=== PATIENT | female | born 1955 | race Caucasian/White ===

== ENCOUNTER 2017-12-04 22:25 | Inpatient (IN) | payer OTHER, MEDICARE ==
[2017-12-04] MEDS: SODIUM CHLORIDE 0.9% FLUSH 10 ML FLUSH IV FLUSH SCH (21:00)
[~2017-12-04 22:25] MED LIST: ASPI-516 CHEW; CARV12.5 PO; CETI10CA3; COZA50TA PO; DIGO0.25 PO; FURO1TAB60 PO; NALOXONE HCL 0.4 MG/ML AMP IV PUSH PRN; ONDANSETRON HCL 4 MG/2 ML VIAL IVP PRN; SODIUM CHLORIDE 0.9% FLUSH 10 ML FLUSH IV FLUSH PRN; SODIUM CHLORIDE 0.9% FLUSH 10 ML FLUSH IV FLUSH SCH
[2017-12-04] MEDS ORDERED: SPIR25TA PO (23:44)
[2017-12-04] MEDS ORDERED: CARV6.252 PO (23:46)
[2017-12-04] MEDS ORDERED: LOSA25TA PO (23:48)
[2017-12-05 00:26] VITALS: PULSE 77
[2017-12-05 00:59] VITALS: BP 116/53; PULSE 96; RESP 14; TEMP 98.2; O2SAT 95
[2017-12-05 01:02] LABS: TROPONIN I 0.13 NG/ML (0.02-0.05)
--- NOTE | 2017-12-05 04:50 | HHI.HP ---
HPI Service [facility] Primary Care Physician Suman Gutiérrez MD Admission Diagnosis Elevated troponin I Dizziness Weakness Diagnoses: (1) Elevated troponin I level (2) Weakness (3) Dizziness Chief Complaint: severe dizziness with nausea and vomiting Travel History International Travel<30 Days: No Contact w/Intl Traveler <30 Da: No Traveled to Known Affected Are: No History of Present Illness Ms. Cross is a 62 year-old female with a history of hypothyroidism, muscular dystrophy, CHF, ?CAD?, Asthma, and hypertension who presented to the ED for evaluation of dizziness with nausea and vomiting and was found to have Troponin I elevation and was transferred to [facility] [place]ology [place]. There was some question of junctional rhythm but I did not see this on the EKGs and, when reviewed by my supervising physician, we felt there was no junctional dysrhythmia. The patient is seen in her hospital room. She reports that she came to the ER for evaluation of severe dizziness and nausea with vomiting (emesis x 2 episodes ) with symptom onset 12/04/17 at about 10 - 11 a.m. She denies any chest pain but reports lightheadedness with vertigo. She denies any shortness of breath. She is also concerned about worsening weakness over the past several weeks with concern of progressively worsening muscular dystrophy. She denies any recent fever, chills, diarrhea, chest pain, shortness of breath, dysuria, or hematuria. She reports coughing the night before last but this was a self- limited episode. Her journalism intern is Dr. Winkler in [facility]. Her last echocardiogram and stress test were done 08/2017 and she was told to follow up in one year. She states her EF is 30%, "I think". Review of Systems Except as stated in HPI: all other systems reviewed are Neg Past Family Social History Past Medical History Hypothyroidism - doesn't recall dose of Synthroid Muscular Dystrophy - doesn't follow with any specialists for this CHF - follows with Dr. Winkler - the patient reports an EF of 30% Questionable CAD with angioplasty vs stent placement about 15 years ago - follows with Dr. Winkler - last echo/stress test done in August 2017 Hypertension Asthma with 7 years since last exacerbation Denies DM, irregular heart rhythm, emphysema, liver problems, kidney problems, seizures, DVT, PE, CVA, or cancers. . Past Surgical History Cholecystectomy Cardiac catheterization . Reported Medications Reported Meds & Active Scripts Active Reported Losartan (Losartan Potassium) 25 Mg Tab 25 Mg PO DAILY Carvedilol 6.25 Mg Tab 6.25 Mg PO BID Spironolactone 25 Mg Tab 25 Mg PO DAILY Zyrtec (Cetirizine HCl) 10 Mg Capsule Aspirin 81 Mg Chew 81 Mg CHEW DAILY Digoxin 0.25 Mg Tab 0.25 Mg PO DAILY Lasix (Furosemide) 40 Mg Tab 40 Mg PO DAILY Synthroid - dosage unknown Allergies: Coded Allergies: codeine (Verified Allergy, Severe, Nausea/Vomiting, 12/04/17) Family History Mother with LA age 42, from dementia age 82 Father with ALS, age 68 3 brothers with MD . Social History Tobacco: denies ever smoking Alcohol: denies Illicit Drugs: denies . Physical Exam Vital Signs Vital Signs Date Time Temp Pulse Resp B/P (MAP) Pulse Ox O2 Delivery O2 Flow Rate FiO2 12/05/17 00:59 98.2 96 14 116/53 (74) 95 12/05/17 00:26 77 Physical Exam CONSTITUTIONAL: This is an overweight female patient, in no apparent distress. INTEGUMENTARY: No rashes. Cool and dry. HEENT: Atraumatic. Normocephalic. No scleral icterus. No injection or drainage. Nose without bleeding, purulent drainage. NECK: Trachea midline. No JVD. CARDIOVASCULAR: Regular rate and rhythm without murmurs, gallops, or rubs. No peripheral edema noted. RESPIRATORY: Clear to auscultation. Breath sounds equal bilaterally. No wheezes , rales, or rhonchi. GASTROINTESTINAL: Abdomen soft, non-tender, nondistended. No guarding. MUSCULOSKELETAL: Extremities without clubbing, cyanosis, or edema. No calf tenderness. NEUROLOGICAL: Awake and alert. Motor and sensory grossly within normal limits. Normal speech. No focal deficits. . Laboratory Laboratory Tests Test 12/04/17 14:40 White Blood Count 12.1 TH/MM3 Red Blood Count 4.60 MIL/MM3 Hemoglobin 13.8 GM/DL Hematocrit 42.2 % Mean Corpuscular Volume 91.7 FL Mean Corpuscular Hemoglobin 30.0 PG Mean Corpuscular Hemoglobin Concent 32.7 % Red Cell Distribution Width 13.2 % Platelet Count 247 TH/MM3 Mean Platelet Volume 9.5 FL Immature Granulocyte % (Auto) 0.3 % Neutrophils (%) (Auto) 81.1 % Lymphocytes (%) (Auto) 12.4 % Monocytes (%) (Auto) 4.6 % Eosinophils (%) (Auto) 1.1 % Basophils (%) (Auto) 0.5 % Immature Granulocyte # (Auto) 0.0 TH/MM3 Neutrophils # (Auto) 9.8 TH/MM3 Lymphocytes # (Auto) 1.5 TH/MM3 Monocytes # (Auto) 0.6 TH/MM3 Eosinophils # (Auto) 0.1 TH/MM3 Basophils # (Auto) 0.1 TH/MM3 CBC Comment DIFF FINAL Differential Comment Urine Color YELLOW Urine Turbidity CLOUDY Urine pH 7.0 Urine Specific [place] 1.015 Urine Protein NEG mg/dL Urine Glucose (UA) NEG mg/dL Urine Ketones NEG mg/dL Urine Occult Blood NEG Urine Nitrite NEG Urine Bilirubin NEG Urine Urobilinogen 0.2 MG/DL Urine Leukocyte Esterase NEG Urine RBC 0-3 /hpf Urine Squamous Epithelial Cells > 8 /hpf Urine Amorphous Sediment MOD Urine Bacteria FEW /hpf Microscopic Urinalysis Comment CULT NOT INDICATED Blood Urea Nitrogen 16 MG/DL Creatinine 0.30 MG/DL Random Glucose 115 MG/DL Total Protein 8.2 GM/DL Albumin 3.4 GM/DL Calcium Level 9.0 MG/DL Magnesium Level 2.0 MG/DL Alkaline Phosphatase 82 U/L Aspartate Amino Transf (AST/SGOT) 38 U/L Alanine Aminotransferase (ALT/SGPT) 32 U/L Total Bilirubin 0.2 MG/DL Sodium Level 139 MEQ/L Potassium Level 3.8 MEQ/L Chloride Level 101 MEQ/L Carbon Dioxide Level 33.0 MEQ/L Anion Gap 5 MEQ/L Estimat Glomerular Filtration Rate 225 ML/MIN Total Creatine Kinase 442 U/L Creatine Kinase MB 10.9 NG/ML Creatine Kinase MB % 2.5 % Troponin I 0.08 NG/ML Digoxin Level 1.0 NG/ML Laboratory Tests Test 12/05/17 00:18 Total Creatine Kinase 682 Creatine Kinase MB 12.8 Creatine Kinase MB % 1.9 Troponin I 0.13 Imaging Last Impressions Chest X-Ray 12/04/17 0000 Signed Impressions: Service Date/Time: Monday, December 04, 2017 18:43 - CONCLUSION: 1. No acute cardiopulmonary disease. Nehemias Schwartz MD . Caprini VTE Risk Assessment Caprini VTE Risk Assessment: Mod/High Risk (score >= 2) Caprini Risk Assessment Model Point Value = 1 Point Value = 2 Point Value = 3 Point Value = 5 Age 41-60 Minor surgery BMI > 25 kg/m2 Swollen legs Varicose veins or History of unexplained or recurrent spontaneous Oral contraceptives or hormone replacement Sepsis (< 1 month) Serious lung disease, including pneumonia (< 1 month) Abnormal pulmonary function Acute myocardial infarction Congestive heart failure (< 1 month) History of inflammatory bowel disease Medical patient at bed rest Age 61-74 Arthroscopic surgery Major open surgery (> 45 min) Laparoscopic surgery (> 45 min) Malignancy Confined to bed (> 72 hours) Immobilizing plaster cast Central venous access Age >= 75 History of VTE Family history of VTE Factor V Leiden Prothrombin [id number] Lupus anticoagulant Anticardiolipin antibodies Elevated serum homocysteine Heparin-induced thrombocytopenia Other congenital or acquired thrombophilia Stroke (< 1 month) Elective arthroplasty Hip, pelvis, or leg fracture Acute spinal cord injury (< 1 month) Prophylaxis Regimen Total Risk Factor Score Risk Level Prophylaxis Regimen 0-1 Low Early ambulation 2 Moderate Order ONE of the following: *Sequential Compression Device (SCD) *Heparin 5000 units SQ BID 3-4 Higher Order ONE of the following medications: *Heparin 5000 units SQ TID *Enoxaparin/Lovenox 40 mg SQ daily (WT < 150 kg, CrCl > 30 mL/min) *Enoxaparin/Lovenox 30 mg SQ daily (WT < 150 kg, CrCl > 10-29 mL/min) *Enoxaparin/Lovenox 30 mg SQ BID (WT < 150 kg, CrCl > 30 mL/min) AND/OR *Sequential Compression Device (SCD) 5 or more Highest Order ONE of the following medications: *Heparin 5000 units SQ TID (Preferred with Epidurals) *Enoxaparin/Lovenox 40 mg SQ daily (WT < 150 kg, CrCl > 30 mL/min) *Enoxaparin/Lovenox 30 mg SQ daily (WT < 150 kg, CrCl > 10-29 mL/min) *Enoxaparin/Lovenox 30 mg SQ BID (WT < 150 kg, CrCl > 30 mL/min) AND *Sequential Compression Device (SCD) Assessment and Plan Problem List: (1) Elevated troponin I level ICD Code: R74.8 - Abnormal levels of other serum enzymes (2) Weakness ICD Code: R53.1 - Weakness (3) Dizziness ICD Code: R42 - Dizziness and giddiness (4) Nausea & vomiting ICD Code: R11.2 - Nausea with vomiting, unspecified (5) Hypothyroidism ICD Code: E03.9 - Hypothyroidism, unspecified Status: Chronic Assessment and Plan Ms. Cross is a 62 year-old female with a history of hypothyroidism, muscular dystrophy, CHF, ?CAD?, Asthma, and hypertension who presented to the ED for evaluation of dizziness with nausea and vomiting and was found to have Troponin I elevation and was transferred to [facility] for cardiology evaluation. There was some question of junctional rhythm but I did not see this on the EKGs and, when reviewed by my supervising physician, we felt there was no junctional dysrhythmia. Elevated Troponin I History of CHF Possible history of CAD with stent vs angioplasty 15 years ago - The patient believes that her EF was reported at 30% - Serial cardiac enzymes with Troponin I 0.08, then 0.10, then 0.13 - CKMB % nl though CKMB elevated - EKGs personally reviewed and showed SR with LBBB - Cardiology consulted - patient denies chest pain - cardiac telemetry to monitor for arrhythmia - diet NPO - Monitor I and O - Obtain records from Dr. Winkler in [place] - last echo and stress test was 08/2017 - she believes they were unchanged from priors Hypothyroidism - check TSH - patient unsure of Synthroid dosage, nursing to call patient's pharmacy when they open Weakness and Dizziness - ?progression of MD? - consult PT - orthostatic vital signs - Neurochecks q4h - discussed with patient the need to f/u as an outpatient after cardiac clearance - will need a neuromuscular specialist Nausea/Vomiting - Zofran 4 mg IV q6h PRN N/V DVT prophylaxis - SCDs/TEDs Discussed Condition With Dr. Mehta and patient . Harper Brand Dec 05, 2017 04:50
[2017-12-05 05:05] VITALS: BP 103/50; PULSE 86; RESP 16; TEMP 98.6; O2SAT 98
[2017-12-05 08:06] VITALS: BP 97/46; PULSE 82; RESP 18; TEMP 97.9; O2SAT 96
[2017-12-05] MEDS: SODIUM CHLORIDE 0.9% FLUSH 10 ML FLUSH IV FLUSH SCH (08:24)
[2017-12-05] MEDS ORDERED: SPIRONOLACTONE 25 MG TAB PO SCH (09:00)
[2017-12-05] MEDS ORDERED: CARVEDILOL 6.25 MG TAB PO SCH (09:00)
[2017-12-05] MEDS ORDERED: LOSARTAN 25 MG TAB PO SCH (09:00)
[2017-12-05] MEDS ORDERED: FUROSEMIDE 40 MG TAB PO SCH (09:00)
[2017-12-05 11:43] VITALS: BP_SYST 103; BP_SYST 104; BP_SYST 96; BP_DIAS 50; BP_DIAS 52; BP_DIAS 56; PULSE 66; RESP 19; TEMP 98; O2SAT 95
[2017-12-05 14:16] LABS: AUTOMATED NEUTROPHIL # 5.6 TH/MM3 (1.8-7.7); BASOPHIL # 0.1 TH/MM3 (0-0.2); BASOPHIL % 0.8 % (0.0-2.0); EOSINOPHIL # 0.1 TH/MM3 (0-0.4); EOSINOPHIL % 1.1 % (0.0-4.0); HEMATOCRIT 37.9 % (35.0-46.0); HEMOGLOBIN 12.9 GM/DL (11.6-15.3); LYMPH % 25.8 % (9.0-44.0); LYMPHOCYTE # 2.2 TH/MM3 (1.0-4.8); MEAN CELL VOLUME 89.7 FL (80.0-100.0); MEAN CORPUSCULAR HEMOGLOBIN 30.4 PG (27.0-34.0); MEAN CORPUSCULAR HGB CONC 33.9 % (32.0-36.0); MEAN PLATELET VOLUME 7.5 FL (7.0-11.0); MONO % 6.4 % (0.0-8.0); MONOCYTE # 0.5 TH/MM3 (0-0.9); NEUT % 65.9 % (16.0-70.0); PLATELET COUNT 245 TH/MM3 (150-450); RED BLOOD COUNT 4.23 MIL/MM3 (4.00-5.30); RED CELL DISTRIBUTION WIDTH 13.4 % (11.6-17.2); WHITE BLOOD COUNT 8.5 TH/MM3 (4.0-11.0)
--- NOTE | 2017-12-05 14:26 | MB ---
cc: SANDIE RUIZ M.D. DATE OF CONSULTATION: 12/05/2017 REASON FOR CONSULTATION Junctional rhythm. HISTORY OF PRESENT ILLNESS The patient is a 62-year-old white female, a poor historian, apparently with a history of chronic recurrent congestive heart failure dating back 16 years, hypertension, muscular dystrophy, asthma, hypothyroidism, questionable history of coronary artery disease with cardiac catheterization 15 years ago, who was transferred from the hospital facility in [place] due to "junctional rhythm". Yesterday the patient developed vertigo symptoms, much worse when lying down. When she tried to eat something or drink some bette sunita she had two episodes of nausea, vomiting. The symptoms of vertigo, nausea have completely resolved today. She denies chest pains, shortness of breath, paroxysmal nocturnal dyspnea, palpitations, pedal edema, syncope, near-syncope. PAST MEDICAL HISTORY 1. History of recurrent congestive heart failure dating back 16 years. According to the patient she has been diagnosed with a cardiomyopathy in the past. 2. Hypertension. 3. Muscular dystrophy. 4. Asthma. 5. Hypothyroidism. 6. Possible history of coronary artery disease. She reports a cardiac catheterization 15 years ago but cannot recall whether she had percutaneous coronary intervention. PAST SURGICAL HISTORY Cholecystectomy. MEDICATIONS Cardiac medications at home: 1. Furosemide 40 mg daily. 2. Digoxin 0.25 mg daily. 3. Carvedilol 12.5 mg b.i.d. 4. Cozaar 50 mg b.i.d. 5. Aspirin 81 mg daily. ALLERGIES CODEINE. FAMILY HISTORY The patient's mother sustained an initial myocardial infarction in her 40s. SOCIAL HISTORY The patient denies alcohol, tobacco or drug abuse. REVIEW OF SYSTEMS Review of systems as in the history of present illness, otherwise negative or noncontributory. She also denies headache, ear pain, abdominal pain, melena, bright red blood per rectum, fevers. PHYSICAL EXAMINATION VITAL SIGNS: Her blood pressure is 103/52 with a pulse of 66, respirations 19. GENERAL: She is a well-developed, well-nourished white female in no acute distress. HEENT: Jugular venous pressure is normal. Carotid pulses are 2+ bilaterally and without bruits. CHEST: Examination of the chest reveals clear lung rivas. CARDIAC: On cardiac examination she has a regular rhythm and rate without S3-S4 or murmur. ABDOMEN: On abdominal examination she has a soft, nontender abdomen. Bowel sounds are present. There is no definite hepatosplenomegaly. Examination of the extremities reveals no clubbing, cyanosis or edema. EKG From 12/04/17 at 02:45 p.m. shows sinus rhythm, left bundle-branch block. EKG from 12/04 at 08:27 p.m. shows sinus arrhythmia, left bundle-branch block. IMAGING STUDIES Chest x-ray shows no acute disease. LABORATORY DATA Laboratory data includes WBC 12.1, hemoglobin 13.8, platelets 247, potassium 3.8, BUN 16, creatinine 0.30, troponin 0.13, CK 682 with 1.9% MB fraction. IMPRESSION 62-year-old white female with a history of congestive heart failure, hypertension, muscular dystrophy, questionable history of coronary artery disease, transferred from [facility] for "junctional rhythm". Her monitoring strips and EKGs have been reviewed. There is no evidence for junctional rhythm. P-wave activity is discernible on the EKG read as junctional rhythm. There is no evidence for acute congestive heart failure. The etiology of the slightly elevated troponin levels is not entirely clear. Overall I doubt acute coronary syndrome. She has had no angina symptoms. She reports a normal nuclear stress test about 3 months ago. Lastly, her symptoms yesterday were more consistent with vertigo rather than lightheadedness or near-syncope. These symptoms have for the most part resolved today. RECOMMENDATIONS 1. No additional cardiac workup at this time. I have recommended she see her primary portable machine sander sooner than already scheduled. 2. Continue her comprehensive cardiac medical regimen. 3. She is cleared for discharge from a cardiac standpoint. MD IDALIA Baker/NAVEEN /1:24 PM /2:04 PM AV
[2017-12-05 14:44] LABS: BICARBONATE 34.4 MEQ/L (21.0-32.0); CALCIUM 8.6 MG/DL (8.5-10.1); CREATININE 0.24 MG/DL (0.50-1.00)
[2017-12-05 14:47] LABS: TROPONIN I 0.13 NG/ML (0.02-0.05)
[2017-12-05 15:25] VITALS: BP 108/78; PULSE 76; RESP 18; TEMP 97.9; O2SAT 96
[2017-12-05] MEDS ORDERED: ACETAMINOPHEN 500 MG CPLT PO PRN (16:15)
[2017-12-05] MEDS ORDERED: POTASSIUM CHLORIDE 20 MEQ PWD PACKET PO ONE (16:30)
--- NOTE | 2017-12-05 17:51 | HHI.DS ---
Discharge Summary Admission Date Dec 04, 2017 at 22:35 Discharge Date: Dec 05, 2017 Admitting Diagnosis Elevated troponin I Dizziness Weakness (1) Elevated troponin I level ICD Code: R74.8 - Abnormal levels of other serum enzymes Diagnosis: Principal (2) Weakness ICD Code: R53.1 - Weakness Diagnosis: Principal (3) Dizziness ICD Code: R42 - Dizziness and giddiness Diagnosis: Principal (4) Nausea & vomiting ICD Code: R11.2 - Nausea with vomiting, unspecified Diagnosis: Principal (5) Hypothyroidism ICD Code: E03.9 - Hypothyroidism, unspecified Diagnosis: Principal Status: Chronic Procedures none Brief History - From Admission Ms. Cross is a 62 year-old female with a history of hypothyroidism, muscular dystrophy, CHF, ?CAD?, Asthma, and hypertension who presented to the ED for evaluation of dizziness with nausea and vomiting and was found to have Troponin I elevation and was transferred to [facility] [place] [place] for cardiology evaluation. There was some question of junctional rhythm but I did not see this on the EKGs and, when reviewed by my supervising physician, we felt there was no junctional dysrhythmia. The patient is seen in her hospital room. She reports that she came to the ER for evaluation of severe dizziness and nausea with vomiting (emesis x 2 episodes ) with symptom onset 12/04/17 at about 10 - 11 a.m. She denies any chest pain but reports lightheadedness with vertigo. She denies any shortness of breath. She is also concerned about worsening weakness over the past several weeks with concern of progressively worsening muscular dystrophy. She denies any recent fever, chills, diarrhea, chest pain, shortness of breath, dysuria, or hematuria. She reports coughing the night before last but this was a self- limited episode. Her revenue stamper is Dr. Winkler in [facility]. Her last echocardiogram and stress test were done 08/2017 and she was told to follow up in one year. She states her EF is 30%, "I think". CBC/BMP: 12/05/17 1345 12/05/17 1345 Significant Findings Laboratory Tests Test 12/05/17 00:18 12/05/17 13:45 Total Creatine Kinase 682 U/L (26-192) 763 U/L (26-192) Creatine Kinase MB 12.8 NG/ML (0.5-3.6) 11.3 NG/ML (0.5-3.6) Troponin I 0.13 NG/ML (0.02-0.05) 0.13 NG/ML (0.02-0.05) Creatinine 0.24 MG/DL (0.50-1.00) Potassium Level 3.4 MEQ/L (3.5-5.1) Carbon Dioxide Level 34.4 MEQ/L (21.0-32.0) Hospital Course Mrs. Cross is a 62 year old female. She went into the [facility] ER with nausea/vomiting and abdominal pain. Blood tests and EKG were concerning for possible junctional rhythm and mild elevation in troponin. She has muscular dystrophy at baseline and this could cause a false mild elevation in troponin. Elevated CK levels correlate with this suspicion. Cardiology has reviewed the EKGs and finds no evidence of junctional rhythm due to P waves. She has a recent negative stress test. She has been cleared by cardiology for discharge with no need for further cardiac workup. Patient has no further nausea or vomiting. She's been in to tolerate by mouth intake. Medically cleared for discharge home today. Pt Condition on Discharge: Stable Discharge Disposition: Discharge Home Discharge Time: <= 30 minutes Discharge Instructions DIET: Follow Instructions for: Heart Healthy Diet Activities you can perform: Regular-No Restrictions Follow up Referrals: Cardiology - 2 Weeks PCP Follow-up - 2 Weeks Continued Medications: Aspirin (Aspirin) 81 Mg Chew 81 MG CHEW DAILY, TAB 0 Refills Carvedilol (Carvedilol) 6.25 Mg Tab 6.25 MG PO BID, #60 TAB 0 Refills Cetirizine HCl (Zyrtec) 10 Mg Capsule Digoxin (Digoxin) 0.25 Mg Tab 0.25 MG PO DAILY for Regulate Heart Beat, #30 TAB 0 Refills Furosemide (Lasix) 40 Mg Tab 40 MG PO DAILY, #30 TAB 0 Refills Losartan (Losartan) 25 Mg Tab 25 MG PO DAILY for Blood Pressure Management, #30 TAB 0 Refills Spironolactone (Spironolactone) 25 Mg Tab 25 MG PO DAILY, #30 TAB 0 Refills Orlando Cross MD Dec 05, 2017 17:51
[2017-12-06] MEDS ORDERED: PNEUMOCOCCAL POLYVALENT INJ 25 MCG/0.5 ML SYR IM ONE (10:00)
== END 2017-12-05 19:04 | disposition home or self-care (01) | DRG 948 ==
LOC: NEDDLT 22:25 → NEPGCP 22:35 → OBSVTOIN 22:35
PROVIDERS: ADMIT Hospitalist; ATTEND Hospitalist
DX: R74.8 Abnormal levels of other serum enzymes (principal); G71.0 Muscular dystrophy; I11.0 Hypertensive heart disease with heart failure; I50.9 Heart failure, unspecified; I42.9 Cardiomyopathy, unspecified; E03.9 Hypothyroidism, unspecified; R42 Dizziness and giddiness; R53.1 Weakness; R11.2 Nausea with vomiting, unspecified; J45.909 Unspecified asthma, uncomplicated; I25.10 Atherosclerotic heart disease of native coronary artery without angina pectoris
CPT/HCPCS: 80048; 82550; 82552; 84443; 84484; 85025